=== PATIENT | female | born 1965 | race Caucasian/White ===

== ENCOUNTER 2023-11-26 08:59 | Day surgery (SDC) | payer OTHER ==
[2023-11-19 12:23] VITALS: BMI 24.7
[2023-11-26 09:14] VITALS: RESP 16
[2023-11-26 10:41] VITALS: TEMP 97.3
[2023-11-26 11:06] VITALS: BP 121/64; PULSE 68
== END 2023-11-26 11:10 | disposition home or self-care (01) ==
LOC: FASU-ENDO 08:59
PROVIDERS: ATTEND Internal Medicine Gastroenterology
PROC: 0DBN8ZX Excision of Sigmoid Colon, Via Natural or Artificial Opening Endoscopic, Diagnostic (ICD-10-PCS; principal; 2023-11-26 10:15)
DX: Z12.11 Encounter for screening for malignant neoplasm of colon (principal); K63.5 Polyp of colon; K64.1 Second degree hemorrhoids
CPT/HCPCS: 88305-TC